=== PATIENT | female | born 1995 | race Caucasian/White ===

== ENCOUNTER 2017-04-19 08:34 | Day surgery (SDC) | payer OTHER ==
[~2017-04-19] VITALS: Ht 170.2 cm; Wt 53.0 kg
[~2017-04-19 08:34] MED LIST: APPLE CIDER VI300 MG PO; BUSPAR10 MG PO; CELEXA20 MG PO; TYLENOL EXTRA500 MG PO
[2017-04-19] MEDS ORDERED: ZANTAC75 M1 PO (09:17)
[2017-04-19 09:20] VITALS: BP 101/81
[2017-04-19 11:56] LABS: INTERNAL CONTROL VALID? YES
[2017-04-19] MEDS ORDERED: LORTAB 5-325 M1 EACH PO (13:51)
[2017-04-19 15:07] VITALS: BP 99/58
[2017-04-19 16:11] VITALS: BP 89/52
[2017-04-19 16:45] VITALS: BP 90/52
== END 2017-04-19 16:45 | disposition home or self-care (01) ==
LOC: SDC 08:34
PROVIDERS: Anesthesiology
PROC: 0HBV0ZX Excision of Bilateral Breast, Open Approach, Diagnostic (ICD-10-PCS; principal; 2017-04-19)
DX: D24.2 Benign neoplasm of left breast (principal); D24.1 Benign neoplasm of right breast; Z80.3 Family history of malignant neoplasm of breast
CPT/HCPCS: 84703; 88305; J0690; J1100; J1885; J2250; J2405; J3010; S0020